=== PATIENT | female | born 1950 | race Caucasian/White ===

== ENCOUNTER → 2019-09-19 | Outpatient (CLI) | payer BC, MEDICARE ==
[2019-09-19 18:10] LABS: Percent Saturation 24.5 % (15.0-50.0)
== END | disposition home or self-care (01) ==
LOC: LAB 16:30 → LAB SHORT 16:30
PROVIDERS: Nurse Practitioner Family
DX: D64.9 Anemia, unspecified (principal)
CPT/HCPCS: 82728; 83540; 83550

== ENCOUNTER → 2020-06-10 | Outpatient (CLI) | payer OTHER ==
[2020-06-10 19:10] LABS: Very Low Density Lipoprot Chol 19 mg/dL (6-32)
[2020-06-10 19:19] LABS: Alanine Aminotransfer (ALT/SGP 27 U/L (12-78); Albumin, Blood 3.9 g/dL (3.4-5.0); Albumin/Globulin Ratio 1.1 (0.8-1.8); Alk Phos 90 U/L (50-136); Anion Gap 7 mmol/L (6-16); Aspartate Aminotrans (AST/SGOT 22 U/L (12-37); Bilirubin, Total 0.5 mg/dL (0.1-1.0); Blood Urea Nitrogen 10 mg/dL (8-24); Bun/Creatinine Ratio 13.8 (12.0-20.0); CHOL/HDL RATIO 2.4; CO2, Blood 27 mmol/L (21-32); Calcium, Blood 9.4 mg/dL (8.5-10.1); Chloride, Blood 102 mmol/L (98-108); Cholesterol 176 mg/dL (50-200); Creatinine, Blood 0.72 mg/dL (0.40-1.00); Globulin, Blood 3.6 g/dL (2.2-4.0); Glomerular Filtration Rate >60 (60-); Glucose, Blood 87 mg/dL (70-99); HDL Cholesterol 72 mg/dL (>39); LDL/HDL RATIO 1.2; Low Density Lipoprotein Chol 85 mg/dL (0-110); Sodium, Blood 136 mmol/L (136-145); Total Protein, Blood 7.5 g/dL (6.4-8.2); Triglycerides 96 mg/dL (30-160)
== END | disposition home or self-care (01) ==
LOC: LAB SHORT 16:55 → LAB 16:55
PROVIDERS: Nurse Practitioner Family
DX: Z11.59 Encounter for screening for other viral diseases (principal); E78.5 Hyperlipidemia, unspecified; I10 Essential (primary) hypertension
CPT/HCPCS: 80053; 80061; 86803

== ENCOUNTER → 2020-08-21 | Outpatient (CLI) | payer OTHER ==
[~2020-08-21] MED LIST: ATOR20 PO; BUDESONIDE EC3 M1 PO; Prinivil10 MG PO
[2020-08-21 17:46] LABS: BASOPHILS ABSOLUTE AUTO 0.09 K/mm3 (0.00-0.23); BASOPHILS PERCENT AUTO 1 % (0-2); EOSINOPHILS ABSOLUTE AUTO 0.34 K/mm3 (0.00-0.68); EOSINOPHILS PERCENT AUTO 3 % (0-6); Hematocrit 37.2 % (33.0-51.0); Hemoglobin 11.5 g/dL (11.5-16.0); IMMATURE GRAN ABSOLUTE AUTO 0.03 K/mm3 (0.00-0.10); IMMATURE GRAN PERCENT AUTO 0 % (0-1); LYMPHOCYTES PERCENT AUTO 22 % (21-46); MONOCYTES ABSOLUTE AUTO 0.85 K/mm3 (0.16-1.47); MONOCYTES PERCENT AUTO 8 % (4-13); Mean Corpuscular HGB Conc 30.9 g/dL (31.5-36.5); Mean Corpuscular Volume 91 fL (80-100); Mean Platelet Volume 9.9 fL (9.1-12.4); NEUTROPHILS ABSOLUTE AUTO 7.49 K/mm3 (1.96-9.15); NEUTROPHILS PERCENT AUTO 66 % (41-73); Platelet Count 443 K/mm3 (150-400); RDW Coefficient Variation 15.6 % (11.7-14.2); RDW Standard Deviation 51.4 fL (35.1-46.3)
== END | disposition home or self-care (01) ==
LOC: LAB 11:56
PROVIDERS: Nurse Practitioner Family
DX: I10 Essential (primary) hypertension (principal)
CPT/HCPCS: 85025

== ENCOUNTER 2020-10-01 08:31 | Day surgery (SDC) | payer OTHER ==
[~2020-10-01] VITALS: Ht 160 cm; Wt 47.4 kg
--- NOTE | 2020-10-01 09:36 | NUR ---
Ambulatory in Day Surgery History, Chart, Medications and Allergies reviewed before start of procedure. Lungs clear T/O to Auscultation. Patient confirms NPO status and agrees with scheduled surgery. Patient States Post-Procedure ride home has been arranged.
--- NOTE | 2020-10-01 09:55 | NUR ---
10/01/20 0955 Noa Foster History, Chart, Medications and Allergies reviewed before start of procedure.PATIENT DETERMINED TO BE ASA APPROPRIATE FOR PROPOFOL SEDATION PRIOR TO START OF PROCEDURE BY . Patient confirms NPO status and agrees with scheduled surgery. MONITOR INTACT WITH CONTINUOUS PULSE OXIMETRY AND INTERMITTENT BP. 3-LEAD EKG REVIEWED WITH PHYSICIAN PRIOR TO START OF PROCEDURE.
--- NOTE | 2020-10-01 11:01 | NUR ---
Patient up to Ambulate independently. Gait steady. Discharge instructions reviewed with patient. Patient verbalizes understanding. Copy given to patient to take home.Lungs clear T/O to Auscultation. Patient States Post-Procedure ride home has been arranged. Discharged via wheelchair to private car for ride home.
== END 2020-10-01 11:22 | disposition home or self-care (01) ==
LOC: ORSCMMR 08:31
PROVIDERS: Internal Medicine Gastroenterology
PROC: 0DBN8ZX Excision of Sigmoid Colon, Via Natural or Artificial Opening Endoscopic, Diagnostic (ICD-10-PCS; principal; 2020-10-01 09:30)
PROC: 0DBK8ZX Excision of Ascending Colon, Via Natural or Artificial Opening Endoscopic, Diagnostic (ICD-10-PCS; principal; 2020-10-01 09:30)
DX: Z12.11 Encounter for screening for malignant neoplasm of colon (principal); D12.2 Benign neoplasm of ascending colon; K64.8 Other hemorrhoids; Z86.010 Personal history of colon polyps; I10 Essential (primary) hypertension; E78.00 Pure hypercholesterolemia, unspecified; Z79.899 Other long term (current) drug therapy; F17.210 Nicotine dependence, cigarettes, uncomplicated
CPT/HCPCS: 88305; J2704; J7120

== ENCOUNTER → 2021-06-12 | Outpatient (CLI) | payer OTHER ==
[2021-06-12 17:45] LABS: BASOPHILS ABSOLUTE AUTO 0.09 K/mm3 (0.00-0.23); BASOPHILS PERCENT AUTO 1 % (0-2); EOSINOPHILS ABSOLUTE AUTO 0.35 K/mm3 (0.00-0.68); EOSINOPHILS PERCENT AUTO 5 % (0-6); Hematocrit 37.3 % (33.0-51.0); Hemoglobin 11.9 g/dL (11.5-16.0); IMMATURE GRAN ABSOLUTE AUTO 0.02 K/mm3 (0.00-0.10); IMMATURE GRAN PERCENT AUTO 0 % (0-1); LYMPHOCYTES ABSOLUTE AUTO 1.97 K/mm3 (0.84-5.20); LYMPHOCYTES PERCENT AUTO 26 % (21-46); MONOCYTES ABSOLUTE AUTO 0.53 K/mm3 (0.16-1.47); MONOCYTES PERCENT AUTO 7 % (4-13); Mean Corpuscular HGB 27.9 pg (26.0-34.0); Mean Corpuscular HGB Conc 31.9 g/dL (31.5-36.5); Mean Corpuscular Volume 87 fL (80-100); NEUTROPHILS ABSOLUTE AUTO 4.69 K/mm3 (1.96-9.15); NEUTROPHILS PERCENT AUTO 61 % (41-73); Platelet Count 426 K/mm3 (150-400); RDW Standard Deviation 50.7 fL (35.1-46.3); Red Blood Cell Count 4.27 M/mm3 (3.80-5.20); White Blood Cell Count 7.65 K/mm3 (4.00-11.30)
[2021-06-12 17:58] LABS: Alanine Aminotransfer (ALT/SGP 27 U/L (12-78); Albumin, Blood 3.8 g/dL (3.4-5.0); Alk Phos 97 U/L (50-136); Anion Gap 3 mmol/L (6-16); Aspartate Aminotrans (AST/SGOT 23 U/L (12-37); Bilirubin, Total 0.5 mg/dL (0.1-1.0); Blood Urea Nitrogen 8 mg/dL (8-24); CHOL/HDL RATIO 3.2; CO2, Blood 30 mmol/L (21-32); Chloride, Blood 103 mmol/L (98-108); Cholesterol 199 mg/dL (50-200); Globulin, Blood 3.8 g/dL (2.2-4.0); Glucose, Blood 85 mg/dL (70-99); HDL Cholesterol 63 mg/dL (>39); LDL/HDL RATIO 1.7; Low Density Lipoprotein Chol 107 mg/dL (0-110); Potassium, Blood 3.9 mmol/L (3.5-5.5); Sodium, Blood 136 mmol/L (136-145); Total Protein, Blood 7.6 g/dL (6.4-8.2); Triglycerides 145 mg/dL (30-160); Very Low Density Lipoprot Chol 29 mg/dL (6-32)
[2021-06-12 18:00] LABS: Bun/Creatinine Ratio 10.3 (12.0-20.0); Creatinine, Blood 0.78 mg/dL (0.40-1.00); Glomerular Filtration Rate >60 (60-)
== END | disposition home or self-care (01) ==
LOC: LAB SHORT 10:07
PROVIDERS: Nurse Practitioner Family
DX: I10 Essential (primary) hypertension (principal); E78.5 Hyperlipidemia, unspecified
CPT/HCPCS: 80053; 80061; 85025

== ENCOUNTER → 2022-01-15 | Outpatient (CLI) | payer OTHER | END | disposition home or self-care (01) | LOC: LAB SHORT 08:25 → PLD 08:25 | DX: S10.86XA Insect bite of other specified part of neck, initial encounter (principal) | CPT/HCPCS: 88305; 88312 ==

== ENCOUNTER → 2023-04-05 | Outpatient (CLI) | payer OTHER ==
[2023-04-05 21:02] LABS: Albumin, Blood 4.1 g/dL (3.4-5.0); Albumin/Globulin Ratio 1.1 (0.8-1.8); Bilirubin, Total 0.3 mg/dL (0.1-1.0); Bun/Creatinine Ratio 11.6 (12.0-20.0); Calcium, Blood 9.3 mg/dL (8.5-10.1); Creatinine, Blood 0.77 mg/dL (0.40-1.00); Globulin, Blood 3.7 g/dL (2.2-4.0); Total Protein, Blood 7.8 g/dL (6.4-8.2)
== END | disposition home or self-care (01) ==
LOC: LAB SHORT 18:11 → LAB 18:11
PROVIDERS: Nurse Practitioner Family
DX: I10 Essential (primary) hypertension (principal)
CPT/HCPCS: 80053

== ENCOUNTER 2023-10-28 08:58 | Day surgery (SDC) | payer OTHER ==
[~2023-10-28] VITALS: Ht 160 cm; Wt 51.2 kg
[~2023-10-28 08:58] MED LIST changes: +Calcium Carbon500 MG PO; +LOSA50 PO; +Lactated Ringer's 1,000 ML IV SCH; +MAGCHL64ER; +MULVITA PO
[2023-10-28 10:08] VITALS: BP 180/85
--- NOTE | 2023-10-28 10:12 | NUR ---
PATIENT LEFT HER PARTIAL DENTURES AT HOME. GLASSES PLACED ON BEDSIDE TABLE FOR SAFE KEEPING DURING PROCEDURE.
[2023-10-28] MEDS ORDERED: propofoL 60 ML IV ONE (11:02)
[2023-10-28] MEDS ORDERED: Benzocaine Oral Spray 0.5ML UD ONE (11:09)
[2023-10-28 12:25] VITALS: BP 154/90
--- NOTE | 2023-10-28 12:32 | NUR ---
10/28/23 1232 Iqra Foster PRIOR TO PROCEDURE HISTORY, CHART, MEDICATIONS AND ALLERGIES REVIEWED BEFORE START OF PROCEDURE. PATIENT CONFIRMS NPO STATUS AND AGREES WITH SCHEDULED PROCEDURE. 3-LEAD EKG REVIEWED WITH PHYSICIAN PRIOR TO START OF PROCEDURE. MONITOR INTACT WITH CONTINUOUS PULSE OXIMETRY,CAPNOGRAPHY, 3-LEAD EKG, INTERMITTENT BP. SUPPLEMENTAL O2 TO BE TITRATED THROUGHOUT PROCEDURE TO MAINTAIN O2 SATURATION ABOVE 90%. PATIENT DETERMINED TO BE ASA APPROPRIATE FOR PROPOFOL SEDATION PRIOR TO START OF PROCEDURE BY DR. ANTOINE
== END 2023-10-28 22:49 | disposition home or self-care (01) ==
LOC: ORSCMMR 08:58 → ORD 10:00 → ORSCMMR 10:00
PROVIDERS: Internal Medicine Gastroenterology
PROC: 0DBK8ZX Excision of Ascending Colon, Via Natural or Artificial Opening Endoscopic, Diagnostic (ICD-10-PCS; principal; 2023-10-28 10:00)
PROC: 0DB58ZX Excision of Esophagus, Via Natural or Artificial Opening Endoscopic, Diagnostic (ICD-10-PCS; principal; 2023-10-28 10:00)
PROC: 0DBL8ZX Excision of Transverse Colon, Via Natural or Artificial Opening Endoscopic, Diagnostic (ICD-10-PCS; principal; 2023-10-28 10:00)
PROC: 0D758ZZ Dilation of Esophagus, Via Natural or Artificial Opening Endoscopic (ICD-10-PCS; principal; 2023-10-28 10:00)
PROC: 0DBN8ZX Excision of Sigmoid Colon, Via Natural or Artificial Opening Endoscopic, Diagnostic (ICD-10-PCS; principal; 2023-10-28 10:00)
PROC: 0DB48ZX Excision of Esophagogastric Junction, Via Natural or Artificial Opening Endoscopic, Diagnostic (ICD-10-PCS; principal; 2023-10-28 10:00)
PROC: 0DBH8ZX Excision of Cecum, Via Natural or Artificial Opening Endoscopic, Diagnostic (ICD-10-PCS; principal; 2023-10-28 10:00)
PROC: 0DB98ZX Excision of Duodenum, Via Natural or Artificial Opening Endoscopic, Diagnostic (ICD-10-PCS; principal; 2023-10-28 10:00)
DX: R13.14 Dysphagia, pharyngoesophageal phase (principal); K21.9 Gastro-esophageal reflux disease without esophagitis; K52.832 Lymphocytic colitis; Z86.010 Personal history of colon polyps; D12.5 Benign neoplasm of sigmoid colon; D12.3 Benign neoplasm of transverse colon; D12.0 Benign neoplasm of cecum; D12.2 Benign neoplasm of ascending colon; K44.9 Diaphragmatic hernia without obstruction or gangrene; K29.80 Duodenitis without bleeding; I10 Essential (primary) hypertension; E78.00 Pure hypercholesterolemia, unspecified; Z79.899 Other long term (current) drug therapy; F17.210 Nicotine dependence, cigarettes, uncomplicated
CPT/HCPCS: 88305; A9270; C1726; J2704; J7120

== ENCOUNTER → 2024-06-22 | Outpatient (CLI) | payer OTHER ==
[~2024-06-22] MED LIST changes: -Lactated Ringer's 1,000 ML IV SCH
== END | disposition home or self-care (01) ==
LOC: LAB SHORT 07:48 → LAB 07:48
DX: B35.1 Tinea unguium (principal); L60.2 Onychogryphosis
CPT/HCPCS: 88305; 88312

== ENCOUNTER → 2024-06-26 | Outpatient (CLI) | payer OTHER ==
[2024-06-26 19:58] LABS: BASOPHILS ABSOLUTE AUTO 0.06 K/mm3 (0.00-0.23); BASOPHILS PERCENT AUTO 1 % (0-2); EOSINOPHILS PERCENT AUTO 5 % (0-6); Hematocrit 37.3 % (33.0-51.0); Hemoglobin 11.9 g/dL (11.5-16.0); IMMATURE GRAN ABSOLUTE AUTO 0.01 K/mm3 (0.00-0.10); IMMATURE GRAN PERCENT AUTO 0 % (0-1); LYMPHOCYTES ABSOLUTE AUTO 1.78 K/mm3 (0.84-5.20); LYMPHOCYTES PERCENT AUTO 28 % (21-46); MONOCYTES ABSOLUTE AUTO 0.46 K/mm3 (0.16-1.47); MONOCYTES PERCENT AUTO 7 % (4-13); Mean Corpuscular HGB 29.7 pg (26.0-34.0); Mean Corpuscular HGB Conc 31.9 g/dL (31.5-36.5); Mean Corpuscular Volume 93 fL (80-100); NEUTROPHILS ABSOLUTE AUTO 3.85 K/mm3 (1.96-9.15); NEUTROPHILS PERCENT AUTO 60 % (41-73); Platelet Count 407 K/mm3 (150-400); RDW Standard Deviation 54.4 fL (35.1-46.3); Red Blood Cell Count 4.01 M/mm3 (3.80-5.20); White Blood Cell Count 6.46 K/mm3 (4.00-11.30)
[2024-06-26 23:17] LABS: Alanine Aminotransfer (ALT/SGP 27 U/L (12-78); Albumin, Blood 3.8 g/dL (3.4-5.0); Alk Phos 93 U/L (50-136); Anion Gap 11 mmol/L (3-11); Aspartate Aminotrans (AST/SGOT 21 U/L (12-37); Bilirubin, Total 0.5 mg/dL (0.1-1.0); Blood Urea Nitrogen 11 mg/dL (8-24); Bun/Creatinine Ratio 12.9 (12.0-20.0); CHOL/HDL RATIO 2.9; CO2, Blood 27 mmol/L (21-32); Chloride, Blood 102 mmol/L (98-108); Cholesterol 206 mg/dL (50-200); Creatinine, Blood 0.85 mg/dL (0.40-1.00); Ferritin, Serum 29 ng/mL (8-252); Globulin, Blood 3.8 g/dL (2.2-4.0); Glomerular Filtration Rate 73 (60-); Glucose, Blood 84 mg/dL (70-99); HDL Cholesterol 71 mg/dL (>39); Iron Serum 77 ug/dL (50-170); LDL/HDL RATIO 1.5; Low Density Lipoprotein Chol 108 mg/dL (0-110); Percent Saturation 23.8 % (15.0-50.0); Potassium, Blood 3.6 mmol/L (3.5-5.5); Sodium, Blood 136 mmol/L (136-145); Total Iron Binding Capacity 324 ug/dL (250-450); Total Protein, Blood 7.6 g/dL (6.4-8.2); Triglycerides 136 mg/dL (30-160); Very Low Density Lipoprot Chol 27 mg/dL (6-32)
== END ==
LOC: LAB 17:25 → LAB SHORT 17:25
PROVIDERS: Nurse Practitioner Family
DX: I10 Essential (primary) hypertension (principal); E78.5 Hyperlipidemia, unspecified; D50.9 Iron deficiency anemia, unspecified; E55.9 Vitamin D deficiency, unspecified
CPT/HCPCS: 80053; 80061; 82306; 82728; 83540; 83550; 84443; 85025

== ENCOUNTER 2024-11-30 09:33 | Day surgery (SDC) | payer OTHER ==
[2024-11-30] VITALS (19 sets, daily range): BP systolic 123–194; BP diastolic 70–125
[~2024-11-30] VITALS: Ht 160 cm; Wt 52.0 kg
[~2024-11-30 09:33] MED LIST changes: +Lactated Ringer's 1,000 ML IV SCH
[2024-11-30] MEDS ORDERED: FAMO40 PO (10:51)
[2024-11-30] MEDS ORDERED: propofoL 40 ML IV ONE (11:49)
--- NOTE | 2024-11-30 11:56 | NUR ---
11/30/24 Bry6 Edita Luke CONFIRMED AND REVIEWED H&P, MEDCICATIONS, ALLERGIES, MEDICAL HISTORY, RESPIRATORY HISTORY, VITAL SIGNS, 3-LEAD EKG, CONSENTS, AND PHYSICIAN ORDERS. PATIENT CONFIRMS NPO STATUS AND AGREES WITH SCHEDULED PROCEDURE. MONITOR INTACT WITH CONTINUOUS PULSE OXIMETRY, CAPNOGRAPHY, 3-LEAD EKG, INTERMITTENT BP. SUPPLEMENTAL O2 TO BE TITRATED THROUGHOUT PROCEDURE TO MAINTAIN O2 SATURATION ABOVE 90%. PATIENT DETERMINED TO BE ASA APPROPRIATE FOR PROPOFOL SEDATION PRIOR TO START OF PROCEDURE BY . MALLAMPATI CLASS 2 AIRWAY: COMPLETE VISUALIZATION OF THE UVULA.
--- NOTE | 2024-11-30 13:07 | NUR ---
Patient up to Ambulate independently. Gait steady. Discharge instructions reviewed with patient. Patient verbalizes understanding. Copy given to patient to take home. Patient States Post-Procedure ride home has been arranged. Discharged via wheelchair to private car for ride home. PT TOLERATING PO. REPORTS READY TO GO HOME.
== END 2024-11-30 13:08 | disposition home or self-care (01) ==
LOC: ORSCMMR 09:33 → ORD 10:30 → ORSCMMR 13:08
PROVIDERS: Internal Medicine Gastroenterology
PROC: 0DBL8ZX Excision of Transverse Colon, Via Natural or Artificial Opening Endoscopic, Diagnostic (ICD-10-PCS; principal; 2024-11-30 10:30)
PROC: 0DBN8ZX Excision of Sigmoid Colon, Via Natural or Artificial Opening Endoscopic, Diagnostic (ICD-10-PCS; principal; 2024-11-30 10:30)
PROC: 0DBM8ZX Excision of Descending Colon, Via Natural or Artificial Opening Endoscopic, Diagnostic (ICD-10-PCS; principal; 2024-11-30 10:30)
PROC: 0DBH8ZX Excision of Cecum, Via Natural or Artificial Opening Endoscopic, Diagnostic (ICD-10-PCS; principal; 2024-11-30 10:30)
DX: Z86.0101 Personal history of adenomatous and serrated colon polyps (principal); D12.0 Benign neoplasm of cecum; D12.3 Benign neoplasm of transverse colon; D12.4 Benign neoplasm of descending colon; K63.5 Polyp of colon; I10 Essential (primary) hypertension; E78.00 Pure hypercholesterolemia, unspecified; J44.9 Chronic obstructive pulmonary disease, unspecified; K21.9 Gastro-esophageal reflux disease without esophagitis; Z79.899 Other long term (current) drug therapy; F17.210 Nicotine dependence, cigarettes, uncomplicated
CPT/HCPCS: 88305; J2704; J7120

== ENCOUNTER 2025-04-18 17:39 | Emergency (ER) | payer OTHER ==
[~2025-04-18] VITALS: Ht 160 cm; Wt 49.9 kg
[~2025-04-18 17:39] MED LIST changes: +FAMO40 PO; -Lactated Ringer's 1,000 ML IV SCH
[2025-04-18 18:16] VITALS: BP 171/98
[2025-04-18] MEDS ORDERED: Ondansetron 4 MG SoluTab MM ONE ×2 (20:00→21:20)
[2025-04-18] MEDS ORDERED: RX Prepack 2 Tabs Ondansetron ODT 4MG UD ONE (22:20)
[2025-04-18] MEDS ORDERED: MIRALAX17 GM PO (22:25)
[2025-04-18] MEDS ORDERED: ADULT GLYCERIN1 EACH PR (22:25)
[2025-04-18] MEDS ORDERED: MINERAL OIL133 M1 PR (22:25)
[2025-04-18] MEDS ORDERED: ONDA4ODT MM (22:25)
[2025-04-24] MEDS ORDERED: ADULT GLYCERIN1 EACH PR (11:20)
[2025-04-24] MEDS ORDERED: MIRALAX1714 PO (11:20)
[2025-04-24] MEDS ORDERED: ONDA4ODT MM (11:21)
[2025-04-24] MEDS ORDERED: Preservision S1 EACH PO (11:22)
== END 2025-04-18 22:28 | disposition home or self-care (01) ==
LOC: ER 17:39
DX: K59.00 Constipation, unspecified (principal); F17.200 Nicotine dependence, unspecified, uncomplicated
CPT/HCPCS: 74018; 99283-25; A9270

== ENCOUNTER 2025-05-14 12:41 | Emergency (ER) | payer OTHER ==
[~2025-05-14] VITALS: Ht 162.6 cm; Wt 45.4 kg
[~2025-05-14 12:41] MED LIST changes: +ADULT GLYCERIN1 EACH PR; +MINERAL OIL133 M1 PR; +MIRALAX17 GM PO; +MIRALAX1714 PO; +ONDA4ODT MM; +Preservision S1 EACH PO
[2025-05-14 13:04] LABS: BASOPHILS ABSOLUTE AUTO 0.05 K/mm3 (0.00-0.23); BASOPHILS PERCENT AUTO 0 % (0-2); EOSINOPHILS ABSOLUTE AUTO 0.14 K/mm3 (0.00-0.68); EOSINOPHILS PERCENT AUTO 1 % (0-6); IMMATURE GRAN ABSOLUTE AUTO 0.58 K/mm3 (0.00-0.10); IMMATURE GRAN PERCENT AUTO 3 % (0-1); LYMPHOCYTES ABSOLUTE AUTO 1.29 K/mm3 (0.84-5.20); LYMPHOCYTES PERCENT AUTO 7 % (21-46); MONOCYTES ABSOLUTE AUTO 0.51 K/mm3 (0.16-1.47); MONOCYTES PERCENT AUTO 3 % (4-13); Mean Corpuscular HGB Conc 32.0 g/dL (31.5-36.5); Mean Corpuscular Volume 96 fL (80-100); NEUTROPHILS ABSOLUTE AUTO 14.80 K/mm3 (1.96-9.15); NEUTROPHILS PERCENT AUTO 85 % (41-73); NRBC ABSOLUTE 0.00 K/mm3 (0.00-0.02); NRBC Auto 0.0 /100 WBC (0.0-0.2); Platelet Count 380 K/mm3 (150-400); RDW Coefficient Variation 15.6 % (11.7-14.2); RDW Standard Deviation 53.4 fL (35.1-46.3)
[2025-05-14 13:06] LABS: Hematocrit 12.8 % (33.0-51.0); Hemoglobin 4.1 g/dL (11.5-16.0)
[2025-05-14] MEDS ORDERED: NS 1,000 ML IV ONE ×2 (13:10→16:32)
[2025-05-14 13:19] LABS: Alanine Aminotransfer (ALT/SGP 49.0 U/L (12-78); Albumin, Blood 2.0 g/dL (3.4-5.0); Albumin/Globulin Ratio 0.6 (0.8-1.8); Anion Gap 16.0 mmol/L (3-11); Aspartate Aminotrans (AST/SGOT 21.0 U/L (12-37); Bilirubin, Total 0.2 mg/dL (0.1-1.0); Blood Urea Nitrogen 50.0 mg/dL (8-24); CO2, Blood 17.0 mmol/L (21-32); Calcium, Blood 7.7 mg/dL (8.5-10.1); Chloride, Blood 106.0 mmol/L (98-108); Creatinine, Blood 1.26 mg/dL (0.40-1.00); Globulin, Blood 3.1 g/dL (2.2-4.0); Glucose, Blood 225.0 mg/dL (70-99); Potassium, Blood 4.0 mmol/L (3.5-5.5); Sodium, Blood 135.0 mmol/L (136-145); Total Protein, Blood 5.1 g/dL (6.4-8.2)
[2025-05-14 13:24] LABS: Prothrombin Time Results 12.0 Sec (9.7-11.5)
[2025-05-14] MEDS ORDERED: Pantoprazole Sodium 40 MG Injection IV ONE (13:40)
[2025-05-14 14:07] LABS: Source, Urine Foley catheter
[2025-05-14 14:13] LABS: Color, Urine Yellow (P-Yellow); Glucose Qualitative, Urine Neg (Neg); Ketones, Urine Neg (Neg); Leukocyte Esterase, Urine Neg (Neg); Protein, Urine 2+ (Neg); Specific Gravity, Urine 1.020 (1.003-1.022); Urobilinogen, Urine NORM (Normal)
[2025-05-14 14:45] LABS: Bilirubin, Urine 1+ (Neg)
[2025-05-14 14:48] LABS: Red Blood Cells, Urine 0-2 /hpf (0-2)
[2025-05-14 16:58] VITALS: BP 127/60
== END 2025-05-14 17:17 | disposition home or self-care (01) ==
LOC: ER 12:41
PROVIDERS: Emergency Medicine
DX: K92.2 Gastrointestinal hemorrhage, unspecified (principal); K31.89 Other diseases of stomach and duodenum; K76.9 Liver disease, unspecified; R79.89 Other specified abnormal findings of blood chemistry; F17.200 Nicotine dependence, unspecified, uncomplicated; Z91.018 Allergy to other foods; Z88.0 Allergy status to penicillin; Z88.8 Allergy status to other drugs, medicaments and biological substances
CPT/HCPCS: 51702; 70450; 71045; 71260; 72125; 74177; 80053; 81001; 83605; 84484; 85018; 85025; 85610; J2470; J7030; J7050; P9016; Q9967

== ENCOUNTER → 2025-05-24 | Outpatient (CLI) | payer OTHER ==
[2025-05-24 18:18] LABS: BASOPHILS ABSOLUTE AUTO 0.04 K/mm3 (0.00-0.23); BASOPHILS PERCENT AUTO 1 % (0-2); EOSINOPHILS ABSOLUTE AUTO 0.62 K/mm3 (0.00-0.68); EOSINOPHILS PERCENT AUTO 9 % (0-6); Hematocrit 25.8 % (33.0-51.0); Hemoglobin 8.2 g/dL (11.5-16.0); IMMATURE GRAN ABSOLUTE AUTO 0.02 K/mm3 (0.00-0.10); IMMATURE GRAN PERCENT AUTO 0 % (0-1); LYMPHOCYTES ABSOLUTE AUTO 1.70 K/mm3 (0.84-5.20); LYMPHOCYTES PERCENT AUTO 25 % (21-46); MONOCYTES ABSOLUTE AUTO 0.57 K/mm3 (0.16-1.47); MONOCYTES PERCENT AUTO 8 % (4-13); Mean Corpuscular HGB Conc 31.8 g/dL (31.5-36.5); Mean Corpuscular Volume 94 fL (80-100); NEUTROPHILS ABSOLUTE AUTO 3.85 K/mm3 (1.96-9.15); NEUTROPHILS PERCENT AUTO 57 % (41-73); NRBC ABSOLUTE 0.00 K/mm3 (0.00-0.02); NRBC Auto 0.0 /100 WBC (0.0-0.2); Platelet Count 563 K/mm3 (150-400); RDW Coefficient Variation 15.1 % (11.7-14.2); RDW Standard Deviation 51.0 fL (35.1-46.3)
[2025-05-24 19:44] LABS: Alanine Aminotransfer (ALT/SGP 27.0 U/L (12-78); Albumin, Blood 2.3 g/dL (3.4-5.0); Albumin/Globulin Ratio 0.7 (0.8-1.8); Anion Gap 9.0 mmol/L (3-11); Aspartate Aminotrans (AST/SGOT 18.0 U/L (12-37); Bilirubin, Total 0.2 mg/dL (0.1-1.0); Blood Urea Nitrogen 9.0 mg/dL (8-24); CO2, Blood 25.0 mmol/L (21-32); Calcium, Blood 7.9 mg/dL (8.5-10.1); Chloride, Blood 106.0 mmol/L (98-108); Creatinine, Blood 0.84 mg/dL (0.40-1.00); Globulin, Blood 3.4 g/dL (2.2-4.0); Glucose, Blood 105.0 mg/dL (70-99); Potassium, Blood 3.2 mmol/L (3.5-5.5); Sodium, Blood 137.0 mmol/L (136-145); Total Iron Binding Capacity 191.0 ug/dL (250-450); Total Protein, Blood 5.7 g/dL (6.4-8.2)
== END ==
LOC: LAB SHORT 17:34 → LAB 17:34
PROVIDERS: Internal Medicine Hematology & Oncology
DX: C17.0 Malignant neoplasm of duodenum (principal)
CPT/HCPCS: 80053; 82378; 83540; 83550; 85025

== ENCOUNTER 2025-06-05 02:12 | Day surgery (SDC) | payer OTHER ==
[~2025-06-05 02:12] MED LIST changes: +LOSA25 PO; -LOSA50 PO
[2025-06-05] MEDS ORDERED: NS 250 ML IV SCH (07:00)
[2025-06-05 07:48] VITALS: BP 114/57
[2025-06-05 08:04] VITALS: BP 100/49
[2025-06-05 09:08] VITALS: BP 115/59
[2025-06-05 09:47] VITALS: BP 147/64
[2025-06-05 10:06] VITALS: BP 144/72
[2025-06-05 11:34] VITALS: BP 170/75
[2025-06-07] MEDS ORDERED: PANT20 PO (08:35)
[2025-06-07] MEDS ORDERED: ERGO400 (08:38)
== END 2025-06-05 11:42 | disposition home or self-care (01) ==
LOC: ATC 02:12 → EDSTATUS 07:30 → ATC 07:30
DX: C17.0 Malignant neoplasm of duodenum (principal); C78.7 Secondary malignant neoplasm of liver and intrahepatic bile duct; I10 Essential (primary) hypertension; Z87.891 Personal history of nicotine dependence; Z79.899 Other long term (current) drug therapy; Z91.030 Bee allergy status
CPT/HCPCS: 36430; 86850; 86900; 86901; 86923; J7050; P9016

== ENCOUNTER 2025-06-12 06:14 | Day surgery (SDC) | payer OTHER ==
[~2025-06-12] VITALS: Ht 157.5 cm; Wt 42.1 kg
[2025-06-12] VITALS (8 sets, daily range): BP systolic 114–137; BP diastolic 66–81
[~2025-06-12 06:14] MED LIST changes: +ERGO400; +PANT20 PO
[2025-06-12] MEDS ORDERED: CeFAZolin Sodium 2,000 MG in NS 100 ML IV SCH (06:20)
[2025-06-12] MEDS ORDERED: CALCITRATE PO (06:37)
--- NOTE | 2025-06-12 07:02 | NUR ---
Ambulatory in Day Surgery. History, Chart, Medications and Allergies reviewed before start of procedure. Pre-Op teaching done. Pt verbalizes understanding. Patient confirms NPO status and agrees with scheduled surgery. Patient States Post-Procedure ride home has been arranged. GLASSES PLACED IN BAGGIE WITH NAME ON IT AND PLACED IN PATIENTS BELONGINS BAG.
[2025-06-12] MEDS ORDERED: FentaNYL Citrate 50 MCG/ML 2 ML Injection ONE (07:04)
[2025-06-12] MEDS ORDERED: Ondansetron HCl 2 MG / ML 2ML Vial ONE (07:05)
[2025-06-12] MEDS ORDERED: Dexamethasone Sod Phos 10 MG/ML 1ML VIAL ONE (07:05)
[2025-06-12] MEDS ORDERED: HYDROmorphone HCl/Pf 1MG SYR IV PRN (07:15)
[2025-06-12] MEDS ORDERED: FentaNYL Citrate 50 MCG/ML 2 ML Injection IV PRN ×3 (07:15→07:25)
[2025-06-12] MEDS ORDERED: Midazolam HCl 1MG / ML 2ML Vial IV PRN (07:20)
[2025-06-12] MEDS ORDERED: Metoclopramide HCl 5MG / ML 2ML Vial IV PRN (07:20)
[2025-06-12] MEDS ORDERED: Ondansetron HCl 2 MG / ML 2ML Vial IV PRN (07:20)
[2025-06-12] MEDS ORDERED: HYDROcodone 5-APAP 325 TAB PO PRN (08:15)
--- NOTE | 2025-06-12 09:10 | NUR ---
Discharge instructions reviewed with patient. Patient verbalizes understanding. Copy given to patient to take home. Dressing c/d/i. Patient States Post-Procedure ride home has been arranged.
== END 2025-06-12 09:11 | disposition home or self-care (01) ==
LOC: ORSCMMR 06:14 → ORD 07:30 → ORSCMMR 09:11
PROVIDERS: Surgery
PROC: 0JH63WZ Insertion of Totally Implantable Vascular Access Device into Chest Subcutaneous Tissue and Fascia, Percutaneous Approach (ICD-10-PCS; principal; 2025-06-12 07:30)
DX: C17.0 Malignant neoplasm of duodenum (principal); C78.7 Secondary malignant neoplasm of liver and intrahepatic bile duct; I12.9 Hypertensive chronic kidney disease with stage 1 through stage 4 chronic kidney disease, or unspecified chronic kidney disease; N18.9 Chronic kidney disease, unspecified; K21.9 Gastro-esophageal reflux disease without esophagitis; I10 Essential (primary) hypertension; Z79.899 Other long term (current) drug therapy; Z87.891 Personal history of nicotine dependence
CPT/HCPCS: 77001; C1788; J0690; J1100; J1642; J2405; J2704; J3010; J7120

== ENCOUNTER 2025-06-25 18:55 | Inpatient (IN) | payer OTHER ==
[~2025-06-25] VITALS: Ht 157.5 cm; Wt 39.0 kg
[~2025-06-25 18:55] MED LIST changes: -ATOR20 PO; +ATOR40TA PO; +CALCITRATE PO; -PANT20 PO; +PANT40 PO
[2025-06-25 20:11] LABS: BASOPHILS ABSOLUTE AUTO 0.03 K/mm3 (0.00-0.23); BASOPHILS PERCENT AUTO 2 % (0-2); EOSINOPHILS ABSOLUTE AUTO 0.02 K/mm3 (0.00-0.68); EOSINOPHILS PERCENT AUTO 1 % (0-6); Hematocrit 34.5 % (33.0-51.0); Hemoglobin 11.3 g/dL (11.5-16.0); Mean Corpuscular HGB Conc 32.8 g/dL (31.5-36.5); Mean Corpuscular Volume 85 fL (80-100); NRBC ABSOLUTE 0.00 K/mm3 (0.00-0.02); NRBC Auto 0.0 /100 WBC (0.0-0.2); Platelet Count 303 K/mm3 (150-400); RDW Coefficient Variation 15.3 % (11.7-14.2); RDW Standard Deviation 46.0 fL (35.1-46.3)
[2025-06-25 20:16] LABS: IMMATURE GRAN ABSOLUTE AUTO 0.01 K/mm3 (0.00-0.10); IMMATURE GRAN PERCENT AUTO 1 % (0-1); LYMPHOCYTES ABSOLUTE AUTO 1.14 K/mm3 (0.84-5.20); LYMPHOCYTES PERCENT AUTO 66 % (21-46); MONOCYTES ABSOLUTE AUTO 0.40 K/mm3 (0.16-1.47); MONOCYTES PERCENT AUTO 23 % (4-13); NEUTROPHILS ABSOLUTE AUTO 0.14 K/mm3 (1.96-9.15); NEUTROPHILS PERCENT AUTO 8 % (41-73)
[2025-06-25] MEDS ORDERED: NS 1,000 ML IV SCH (20:25)
[2025-06-25 20:32] LABS: Alanine Aminotransfer (ALT/SGP 20.0 U/L (12-78); Albumin, Blood 3.0 g/dL (3.4-5.0); Albumin/Globulin Ratio 0.7 (0.8-1.8); Anion Gap 13.0 mmol/L (3-11); Aspartate Aminotrans (AST/SGOT 15.0 U/L (12-37); Bilirubin, Total 0.4 mg/dL (0.1-1.0); Blood Urea Nitrogen 48.0 mg/dL (8-24); CO2, Blood 24.0 mmol/L (21-32); Calcium, Blood 9.2 mg/dL (8.5-10.1); Chloride, Blood 97.0 mmol/L (98-108); Creatinine, Blood 1.7 mg/dL (0.40-1.00); Globulin, Blood 4.5 g/dL (2.2-4.0); Glucose, Blood 115.0 mg/dL (70-99); Potassium, Blood 3.7 mmol/L (3.5-5.5); Sodium, Blood 130.0 mmol/L (136-145); Total Protein, Blood 7.5 g/dL (6.4-8.2)
[2025-06-25] MEDS ORDERED: Ondansetron HCl 2 MG / ML 2ML Vial IV ONE (20:35)
[2025-06-26] MEDS ORDERED: Midazolam HCl 1MG / ML 2ML Vial IV PRN (00:20)
[2025-06-26] MEDS ORDERED: FLU VACC TS2025(65UP)/MF59C/PF 45 MCG/0.5 ML SYRINGE IM SCH (00:35)
[2025-06-26] MEDS ORDERED: FentaNYL Citrate 50 MCG/ML 2 ML Injection IV PRN (00:35)
[2025-06-26] MEDS ORDERED: NS 1,000 ML IV ONE (00:35)
[2025-06-26] MEDS ORDERED: Ondansetron HCl 2 MG / ML 2ML Vial IV PRN (00:40)
[2025-06-26 00:56] LABS: Magnesium, Blood 1.5 mg/dL (1.6-2.4); Phosphorus, Blood 4.8 mg/dL (2.5-4.9)
[2025-06-26] MEDS ORDERED: Mag Sulfate 1 GM/D5% 100ML 100 ML IV STA (03:07)
[2025-06-26 03:09] VITALS: BP 116/70
[2025-06-26] MEDS ORDERED: ZYRTEC10 M2 PO (04:06)
[2025-06-26] MEDS ORDERED: ONDA4ODT SL (04:08)
[2025-06-26 04:46] LABS: Source, Urine Clean Catch
[2025-06-26 05:16] LABS: Bilirubin, Urine Neg (Neg); Glucose Qualitative, Urine Neg (Neg); Ketones, Urine 1+ (Neg); Leukocyte Esterase, Urine Neg (Neg); Protein, Urine 2+ (Neg); Specific Gravity, Urine 1.010 (1.003-1.022); Urobilinogen, Urine NORM (Normal)
[2025-06-26 05:20] LABS: Color, Urine Yellow (P-Yellow)
[2025-06-26 05:22] LABS: Red Blood Cells, Urine Not Seen /hpf (0-2); White Blood Cells, Urine Not Seen /hpf (0-5)
--- NOTE | 2025-06-26 05:35 | NUR ---
Shift Summary Received a quick and short report from WAQAS Snyder RN. Patient arrived around 0300 via gurney. AOx4, flat affect, wearing personal clothing with hospital gown over. Patient lives alone and verbalizes she does not feel safe at the moment living by herself as she has been progressively weak from chemotherapy. Plan to transfer to [facility] when bed is available. Denies pain, nausea. Patient has had vomiting without being nauseous d/t clogged abdominal stent. UA obtained and sent to lab. Tele: Sr [id number]. NPO for now. Call light in reach.
[2025-06-26] MEDS ORDERED: NS 250 ML IV PRN (06:10)
[2025-06-26 07:48] VITALS: BP 93/63
[2025-06-26 09:52] LABS: BASOPHILS ABSOLUTE AUTO 0.02 K/mm3 (0.00-0.23); BASOPHILS PERCENT AUTO 1 % (0-2); EOSINOPHILS ABSOLUTE AUTO 0.01 K/mm3 (0.00-0.68); EOSINOPHILS PERCENT AUTO 1 % (0-6); Hematocrit 25.6 % (33.0-51.0); Hemoglobin 8.4 g/dL (11.5-16.0); IMMATURE GRAN ABSOLUTE AUTO 0.04 K/mm3 (0.00-0.10); IMMATURE GRAN PERCENT AUTO 2 % (0-1); LYMPHOCYTES ABSOLUTE AUTO 1.10 K/mm3 (0.84-5.20); LYMPHOCYTES PERCENT AUTO 64 % (21-46); MONOCYTES ABSOLUTE AUTO 0.46 K/mm3 (0.16-1.47); MONOCYTES PERCENT AUTO 27 % (4-13); Mean Corpuscular HGB Conc 32.8 g/dL (31.5-36.5); Mean Corpuscular Volume 86 fL (80-100); NEUTROPHILS ABSOLUTE AUTO 0.10 K/mm3 (1.96-9.15); NEUTROPHILS PERCENT AUTO 6 % (41-73); NRBC ABSOLUTE 0.00 K/mm3 (0.00-0.02); NRBC Auto 0.0 /100 WBC (0.0-0.2); Platelet Count 269 K/mm3 (150-400); RDW Coefficient Variation 15.3 % (11.7-14.2); RDW Standard Deviation 47.3 fL (35.1-46.3)
[2025-06-26 10:19] LABS: Alanine Aminotransfer (ALT/SGP 14.0 U/L (12-78); Albumin, Blood 2.2 g/dL (3.4-5.0); Albumin/Globulin Ratio 0.6 (0.8-1.8); Anion Gap 9.0 mmol/L (3-11); Aspartate Aminotrans (AST/SGOT 12.0 U/L (12-37); Bilirubin, Total 0.5 mg/dL (0.1-1.0); Blood Urea Nitrogen 41.0 mg/dL (8-24); CO2, Blood 23.0 mmol/L (21-32); Calcium, Blood 7.9 mg/dL (8.5-10.1); Chloride, Blood 104.0 mmol/L (98-108); Creatinine, Blood 1.06 mg/dL (0.40-1.00); Globulin, Blood 3.4 g/dL (2.2-4.0); Glucose, Blood 98.0 mg/dL (70-99); Potassium, Blood 3.9 mmol/L (3.5-5.5); Sodium, Blood 132.0 mmol/L (136-145); Total Protein, Blood 5.6 g/dL (6.4-8.2)
[2025-06-26 11:28] VITALS: BP 98/56
[2025-06-26] MEDS ORDERED: PROM25 PO (12:45)
[2025-06-26] MEDS ORDERED: POTA10T PO (12:45)
[2025-06-26] MEDS ORDERED: VITAMIN D325 MC3 PO (12:46)
[2025-06-26 16:03] VITALS: BP 110/53
--- NOTE | 2025-06-26 17:21 | NUR ---
SHIFT SUMMARY PATIENT ALERT AND ORIENTED X 4, MAKE NEEDS KNOWN. MEDICATION ADMINISTERED PER EMAR. PATIENT PLEASANT AND RECEPTIVE DURING CARE. NO ACUTE CHANGE DURING THIS SHIFT. PATIENT NPO. PATIENT ON NEUTROPENIC PRECAUTION. SELF REPOSITIONED THROUGHOUT SHIFT. BED LOCKED AND IN LOWEST POSITION. CALL LIGHT WITHIN REACH.
[2025-06-26 19:08] VITALS: BP 106/66
[2025-06-26 23:39] VITALS: BP 113/67
--- NOTE | 2025-06-27 01:58 | NUR ---
MARGARITA BACH FROM [facility] CALLED FOR AN UPDATE ON PT. HE REPORTS THAT A BED WILL BE AVAILABLE DURING "DAY SHIFT" TODAY. HE REPORTS [facility] WILL CALL AGAIN WITH FURTHER DETAILS.
[2025-06-27 04:01] VITALS: BP 109/63
[2025-06-27 05:27] LABS: Hematocrit 24.9 % (33.0-51.0); Hemoglobin 8.0 g/dL (11.5-16.0); Mean Corpuscular HGB Conc 32.1 g/dL (31.5-36.5); Mean Corpuscular Volume 88 fL (80-100); NRBC ABSOLUTE 0.00 K/mm3 (0.00-0.02); NRBC Auto 0.0 /100 WBC (0.0-0.2); Platelet Count 278 K/mm3 (150-400); RDW Coefficient Variation 15.3 % (11.7-14.2); RDW Standard Deviation 48.9 fL (35.1-46.3)
[2025-06-27 05:48] LABS: Anion Gap 8.0 mmol/L (3-11); Blood Urea Nitrogen 26.0 mg/dL (8-24); CO2, Blood 23.0 mmol/L (21-32); Calcium, Blood 7.9 mg/dL (8.5-10.1); Chloride, Blood 109.0 mmol/L (98-108); Creatinine, Blood 0.73 mg/dL (0.40-1.00); Glucose, Blood 90.0 mg/dL (70-99); Potassium, Blood 3.7 mmol/L (3.5-5.5); Sodium, Blood 136.0 mmol/L (136-145)
--- NOTE | 2025-06-27 06:34 | NUR ---
SHIFT SUMMARY A/Ox4, PLEASANT. VSS ON RA. NPO DIET. TELE MONITOR; NSR, HR 80s. PT DENIES PAIN, SOB, NAUSEA. NO EMESIS NOTED. UP TO RESTROOM WITH SBA; VOIDING THUY URINE. MARGARITA BACH FROM [facility], CALLED FOR UPDATE; STATES TRANSFER IS EXPECTED FOR TODAY. PT WOULD APPRECIATE UPDATES ON TIMING SHE HAS "MANY PEOPLE TO NOTIFY".
[2025-06-27] MEDS ORDERED: NS 1,000 ML IV SCH (08:00)
[2025-06-27 08:17] VITALS: BP 126/72
[2025-06-27 12:45] VITALS: BP 129/70
[2025-06-27] MEDS ORDERED: DEXTROSE IV SCH (16:05)
[2025-06-27] MEDS ORDERED: CALCIUM IV SCH (16:05)
[2025-06-27] MEDS ORDERED: ELECTROLYTES IV SCH (16:05)
[2025-06-27] MEDS ORDERED: TPN Consult Notification XX ONE (16:05)
[2025-06-27] MEDS ORDERED: THIAMINE IV SCH (16:05)
[2025-06-27] MEDS ORDERED: AMINO ACIDS IV SCH (16:05)
[2025-06-27] MEDS ORDERED: [UNRECOGNIZED DRUG - OTHER] IV SCH (16:05)
[2025-06-27 16:34] VITALS: BP 126/73
--- NOTE | 2025-06-27 16:55 | NUR ---
SHIFT SUMMARY PATIENT ALERT AND ORIENTED X 4, MAKE NEEDS KNOWN. MEDICATION ADMINISTERED PER EMAR. PATIENT PLEASANT AND COOPERATIVE DURING CARE. NO ACUTE CHANGE DURING THIS SHIFT. PATIENT INDEPENDENTLY SHOWERED TODAY. G BATH AND DRESSING CHANGE COMPLETED. SELF REPOSITIONED THROUGHOUT SHIFT. BED LOCKED AND IN LOWEST POSITION. CALL LIGHT WITHIN REACH.
[2025-06-27 17:36] LABS: Magnesium, Blood 2.0 mg/dL (1.6-2.4); Phosphorus, Blood 2.7 mg/dL (2.5-4.9)
[2025-06-27 19:13] VITALS: BP 116/79
[2025-06-28 03:14] VITALS: BP 120/67
[2025-06-28 06:02] LABS: Anion Gap 7.0 mmol/L (3-11); Blood Urea Nitrogen 19.0 mg/dL (8-24); CO2, Blood 24.0 mmol/L (21-32); Calcium, Blood 7.9 mg/dL (8.5-10.1); Chloride, Blood 111.0 mmol/L (98-108); Creatinine, Blood 0.6 mg/dL (0.40-1.00); Glucose, Blood 112.0 mg/dL (70-99); Magnesium, Blood 1.8 mg/dL (1.6-2.4); Phosphorus, Blood 2.1 mg/dL (2.5-4.9); Potassium, Blood 3.7 mmol/L (3.5-5.5); Sodium, Blood 138.0 mmol/L (136-145)
--- NOTE | 2025-06-28 06:45 | NUR ---
SHIFT SUMMARY A/Ox4, VSS ON RA. NO ACUTE CHANGES OVERNIGHT. PT TOLERATING CLINIMIX AT 60 ML/HR WELL. NS RUNNING 75 ML/HR. UP TO RESTROOM WITH SBA. PT DENIES PAIN, SOB, NAUSEA, OTHER COMPLAINTS. MARGARITA BACH FROM [facility] CALLED FOR UPDATE; HE DID NOT KNOW ABOUT BED AVAILABILITY AT THIS TIME.
[2025-06-28 07:25] VITALS: BP 124/74
[2025-06-28 11:04] VITALS: BP 140/74
--- NOTE | 2025-06-28 13:29 | NUR ---
PATIENT SPOKE WIT PALLIATIVE CARE RN, CODE STATUS CHANGED TO DNR, WIATING TO HERE FROM [facility], CALL LIGHT WITH IN REACH, PLEASANT TO CARE
[2025-06-28] MEDS ORDERED: TPN Consult Notification XX ONE (14:05)
[2025-06-28 15:58] VITALS: BP 141/96
--- NOTE | 2025-06-28 17:28 | NUR ---
NO ACUTE CHANGES, NPO, PLEASANT TO CARE, ONE PERSON STAND BY TO RESTROOM, WAITING FOR BED AVAILABLIITY TO [facility], DENIED PAIN OR CP, WILL RLEAY TO PM RN
--- NOTE | 2025-06-28 18:27 | NUR ---
PALLIATIVE CARE VISIT: CONSULT RECEIVED FOR ADVANCE CARE PLANNING AND SYMPTOM MANAGEMENT. REVIEWED MEDICAL RECORD PRIOR TO VISIT. PT HAS NO POLST OR ADVANCE DIRECTIVE ON FILE. 1045 MET WITH PT IN HER ROOM. PT IS NPO. DENTAL HYGEINIST ALSO IN WITH PT AT TIME OF VISIT. PT IS AGREEABLE TO VISIT AND TO DISCUSS GOC. PT WISHES TO CONTINUE HER CANCER TREATMENT. SHE STATES "I KNOW I AM DYING, BUT I AM NOT READY TO GO [facility] YET." PT IS AWAITING BED AT [facility] FOR FURTHER TREATMENT. SHE IS AGREEABLE TO COMPLETING A POLST. PT WANTS TO BE A DNR. SHE STATES SHE ALREADY COMPLETED A POLST AT [facility] BUT SHE DID NOT GET A COPY. NO COPY FOUND ON POLST REGISTRY. SHE CHOSE DNR SELECTIVE TREATMENT. SYMPTOMS: PT STATES SHE HAS NO PAIN, NAUSEA OR SOB. SHE STATES SHE IS HUNGRY AND TIRED. PT IS CURRENTLY NPO DUE TO ESOPHAGEAL MASS. SHE STATES SHE IS SLEEPING THROUGH HER HUNGER AND DOESN'T NEED ANYTHING. SHE IS UTILIZING TOOTHETTES TO KEEP HER MOUTH MOIST. SHE DENIES ANY NEEDS FOR SYMPTOM MANAGEMENT AT THIS TIME. POLST SIGNED BY . SENT TO MEDICAL RECORDS, POLST REGISTRY. ORIGINAL PLACED IN CHART.
[2025-06-28 19:26] VITALS: BP 146/69
[2025-06-29] VITALS (15 sets, daily range): BP systolic 83–159; BP diastolic 55–104
[2025-06-29] MEDS ORDERED: Prochlorperazine Edisylate 10 mg Vial IV ONE (02:00)
[2025-06-29] MEDS ORDERED: Prochlorperazine Edisylate 10 mg Vial IV PRN (02:00)
[2025-06-29 06:14] LABS: Anion Gap 6 mmol/L (3-11); Blood Urea Nitrogen 22 mg/dL (8-24); CO2, Blood 33 mmol/L (21-32); Calcium, Blood 7.7 mg/dL (8.5-10.1); Chloride, Blood 102 mmol/L (98-108); Creatinine, Blood 0.63 mg/dL (0.40-1.00); Glucose, Blood 123 mg/dL (70-99); Magnesium, Blood 1.7 mg/dL (1.6-2.4); Phosphorus, Blood 3.4 mg/dL (2.5-4.9); Potassium, Blood 2.9 mmol/L (3.5-5.5); Sodium, Blood 138 mmol/L (136-145); Triglycerides 201 mg/dL (30-160)
--- NOTE | 2025-06-29 06:23 | NUR ---
SHIFT SUMMARY A/Ox4, BP DECLINED THIS SHIFT, OTHER VSS ON RA. PT WITH 1250 ML EMESIS, ANTI-EMETICS ONLY MILDLY EFFECTIVE; MD CONTACTED. NG TUBE PLACED, PT TOLERATED WELL. LOW, INTERMITTENT SUCTION. X-RAY RESULTS PENDING. 1400 ML NG OUTPUT AT THIS TIME; BLACK WITH SEDIMENT. NPO DIET CONTINUES. NS AND CLINIMIX RUNNING CONTINUOUSLY. [facility] COORDINATOR DID NOT GET IN TOUCH THIS SHIFT.
[2025-06-29] MEDS ORDERED: NS KCL 40 mEq 1,000 ML IV SCH (07:00)
[2025-06-29 12:12] LABS: Hematocrit 22.3 % (33.0-51.0); Hemoglobin 7.1 g/dL (11.5-16.0); Mean Corpuscular HGB Conc 31.8 g/dL (31.5-36.5); Mean Corpuscular Volume 89 fL (80-100); NRBC ABSOLUTE 0.03 K/mm3 (0.00-0.02); NRBC Auto 0.7 /100 WBC (0.0-0.2); Platelet Count 330 K/mm3 (150-400); RDW Coefficient Variation 15.4 % (11.7-14.2); RDW Standard Deviation 48.8 fL (35.1-46.3)
[2025-06-29 12:35] LABS: BAND PERCENT MAN 9 % (0-8); BASOPHILS ABSOLUTE MAN 0.00 K/mm3 (0.00-0.23); BASOPHILS PERCENT MAN 0 % (0-2); EOSINOPHILS ABSOLUTE MAN 0.00 K/mm3 (0.00-0.68); EOSINOPHILS PERCENT MAN 0 % (0-6); LYMPHOCYTES ABSOLUTE MAN 0.77 K/mm3 (0.84-5.20); LYMPHOCYTES PERCENT MAN 18 % (21-46); METAMYELOCYTE ABSOLUTE MAN 0.38 K/mm3 (0.00-0.00); METAMYELOCYTE PERCENT MAN 9 % (0-0); MONOCYTES ABSOLUTE MAN 0.42 K/mm3 (0.16-1.47); MONOCYTES PERCENT MAN 10 % (4-13); MYELOCYTE ABSOLUTE MAN 0.17 K/mm3 (0.00-0.00); MYELOCYTE PERCENT MAN 4 % (0-0); NEUTROPHILS ABSOLUTE MAN 2.44 K/mm3 (1.96-9.15); PROMYELOCYTE ABSOLUTE MAN 0.08 K/mm3 (0.00-0.00); PROMYELOCYTE PERCENT MAN 2 % (0-0); SEG NEUTROPHILS PERCENT MAN 48 % (41-73)
[2025-06-29] MEDS ORDERED: Pantoprazole Sodium 40 MG Injection IV SCH (13:00)
[2025-06-29 15:33] LABS: Hematocrit 19.3 % (33.0-51.0); Hemoglobin 6.2 g/dL (11.5-16.0)
[2025-06-29] MEDS ORDERED: [UNRECOGNIZED DRUG - OTHER] IV SCH (17:00)
[2025-06-29] MEDS ORDERED: NS 500 ML IV SCH (17:40)
--- NOTE | 2025-06-29 18:22 | NUR ---
SHIFT SUMMARY PT HERE FOR NAUSEA AND VOMITING NOT RESPONDING TO ANTIEMETICS. LAST NIGHT NG TUBE PLACED, BROWN EMESIS WITH COFFEE GROUND SEDIMENT TO SUCTION. CBC ORDERED AND HGB 7.1, REDRAW HGB WAS 6.2, MD AWARE, 2 UNITS PRBC ORDERED. FIRST UNIT BEGAN INFUSING AT 1820, SO FAR PT TOLERATING WELL. CPN ORDERED BUT NOT ADMINISTERED D/T BLOOD TRANSFUSING AT THIS TIME, WILL PASS ON TO NOC NURSE. K+ REPLACED THIS MORNING. PT DENIES N/V THIS SHIFT. PLEASANT AND COOPERATIVE WITH CARE. CALL LIGHT IN REACH.
--- NOTE | 2025-06-29 20:58 | NUR ---
FIRST UNIT (OF 2 ORDERED) OF BLOOD INFUSED. VSS. NO C/O VOICED. RESPS EVEN. LAB NOTIFIED TO SEND SECOND UNIT. NEUTROPENIC PRECAUTIONS MAINTAINED. CALL LIGHT IN REACH.
--- NOTE | 2025-06-29 21:48 | NUR ---
SECOND UNIT OF BBLOOD (OF 2 ORDERED), INFUSING. NO NOTED S/S ADVERSE REACTIONS. DENIES PAIN OF LOWER/MID BACK. CALL LIGHT IN REACH.
--- NOTE | 2025-06-30 03:04 | NUR ---
NURSE FROM [facility] CALLED FOR UPDATE. NO BED AVAILABLE OF NOW, BUT THEY WLL CONTINUE TO CALL BACK TO KEEP US UPDATED.
[2025-06-30 03:24] VITALS: BP 138/83
--- NOTE | 2025-06-30 03:27 | NUR ---
SHIFT SUMMARY PATIENT IS A&OX4, POLITE AND COOPERATIVE WITH CARE. TWO UNITS OF BLOOD TRANSFUSED, CPN RUNNING, NG TUBE PATENT AND DRAINING CYLINDER BATCHER GREEN FLUID (START OF SHIFT WAS COFFEE GROUND IN RESERVOIR), [facility] TRANSFER LINE UPDATED (STILL NO BED YET), PATIENT HAS DENIED ANY PAIN AND DISCOMFORT. HAD HIGHER BP AFTER TRANSFUSION NOTIFIED DOCTOR, ORDERED TO START CPN. WAFFLE PAD IN PLACE. ABLE TO CALL AND MAKE NEEDS KNOWN, CALL LIGHT WITHIN REACH, BED RAILS X3 UP, BED AT LOWEST POSITION. SLEPT INTERMITTENTLY DUE TO TRANSFUSIONS
[2025-06-30 06:06] LABS: Anion Gap 7.0 mmol/L (3-11); Blood Urea Nitrogen 16.0 mg/dL (8-24); CO2, Blood 28.0 mmol/L (21-32); Calcium, Blood 8.3 mg/dL (8.5-10.1); Chloride, Blood 104.0 mmol/L (98-108); Creatinine, Blood 0.56 mg/dL (0.40-1.00); Glucose, Blood 106.0 mg/dL (70-99); Magnesium, Blood 1.8 mg/dL (1.6-2.4); Phosphorus, Blood 3.4 mg/dL (2.5-4.9); Potassium, Blood 3.6 mmol/L (3.5-5.5); Sodium, Blood 135.0 mmol/L (136-145)
[2025-06-30 07:22] VITALS: BP 142/88
[2025-06-30 09:26] LABS: Hematocrit 31.8 % (33.0-51.0); Hemoglobin 10.8 g/dL (11.5-16.0)
[2025-06-30 11:48] VITALS: BP 136/81
[2025-06-30 14:54] VITALS: BP 144/76
--- NOTE | 2025-06-30 18:09 | NUR ---
ASSUMED CARE OF PT PT IS A/O X 4 FLAT AFFECT BUT PLEASENT, PT IS COMPLAINING OF HUNGER BUT HAS NGT AT LIS DRAINING LARGE AMOUNT OF GREEN BILE. NO BLEEDING NOTED. PT CONTINUE ON NEUTROPINIC PERCAUTION. RIGHT CHEST MEDIPORT ACCESSED AND INFUSING CPN, PT LISA WELL. NO C/O PAIN NO DISTRESS.
--- NOTE | 2025-06-30 18:12 | NUR ---
NO CHANGE PT QUIETLY LAYING IN BED CALL LIGHT WITHIN REACH MAKE NEEDS KNOWN. DR ESCALERA IN TO SEE PT NO NEW ORDERES WRITTEN,
--- NOTE | 2025-06-30 18:15 | NUR ---
1700 NO CHANGE CONT MONITORING. NEW CPN HUNG AND INFUSING AT 65
[2025-06-30 19:30] VITALS: BP 121/99
[2025-06-30 23:57] VITALS: BP 126/95
--- NOTE | 2025-07-01 00:19 | NUR ---
STAFF FROM [facility] CALLED RE UPDATE IN STATUS STILL NO CURRENT BEDS AVAILABLE. THEY WILL CALL BACK AGAIN.
[2025-07-01 04:49] LABS: Hematocrit 34.3 % (33.0-51.0); Hemoglobin 11.6 g/dL (11.5-16.0); Mean Corpuscular HGB Conc 33.8 g/dL (31.5-36.5); Mean Corpuscular Volume 85 fL (80-100); NRBC ABSOLUTE 0.02 K/mm3 (0.00-0.02); NRBC Auto 0.2 /100 WBC (0.0-0.2); Platelet Count 284 K/mm3 (150-400); RDW Coefficient Variation 15.4 % (11.7-14.2); RDW Standard Deviation 46.5 fL (35.1-46.3)
[2025-07-01 04:54] VITALS: BP 120/84
[2025-07-01 05:09] LABS: Anion Gap 9.0 mmol/L (3-11); Blood Urea Nitrogen 19.0 mg/dL (8-24); CO2, Blood 26.0 mmol/L (21-32); Calcium, Blood 8.2 mg/dL (8.5-10.1); Chloride, Blood 99.0 mmol/L (98-108); Creatinine, Blood 0.5 mg/dL (0.40-1.00); Glucose, Blood 111.0 mg/dL (70-99); Potassium, Blood 4.2 mmol/L (3.5-5.5); Sodium, Blood 130.0 mmol/L (136-145)
[2025-07-01 07:14] VITALS: BP 127/79
[2025-07-01] MEDS ORDERED: Dextran/Hypromellose/Glycerin 15 DROP/ML BTL BOTHEYES PRN (08:55)
[2025-07-01 11:29] VITALS: BP 125/84
[2025-07-01] MEDS ORDERED: TPN Consult Notification XX ONE (12:00)
[2025-07-01 14:47] VITALS: BP 127/94
[2025-07-01] MEDS ORDERED: [UNRECOGNIZED DRUG - OTHER] IV SCH (17:00)
--- NOTE | 2025-07-01 19:30 | NUR ---
PT A/OX4. NO ACUTE CHANGES ON TELE. 1PA TO BEDSIDE COMMODE. NG TUBE ON INTERMITTENT LOW SUCTION DRAINING DARK BROWN CONTENTS. PT TO TRANSFER TO [facility]. NO ACUTE NEEDS AT THIS TIME.
[2025-07-01 20:05] VITALS: BP 124/90
[2025-07-01 21:18] LABS: CORONAVIRUS COVID-19 AG Negative (NEGATIVE)
--- NOTE | 2025-07-01 22:11 | NUR ---
TRANSFER NOTE PATIENT BEING TRANSFERRED TO [facility] FLOOR 10A ROOM 8. REPORT WAS CALLED TO LISSA.
[2025-07-01 22:18] VITALS: BP 124/90
--- NOTE | 2025-07-01 22:23 | NUR ---
PT TO BE TRANSFERRED TO [facility] THIS NIGHT. PERSONAL BELONGINGS INCLUDE. CELL PHONE AND FOOD MOBILE DRIVER, BOOK, PINK AND WHIE GLOVES, PURSE AND WALLET WITH [employer]. CARD KEYS FLASHLIGHT, GLASSES, BRUSH, BAG OF CLTHING AND SHOES, JACKET
--- NOTE | 2025-07-01 23:48 | NUR ---
TRANSFER NOTE PATIENT TRANSFERRED TO [facility] WITH [facility]. PATIENT AMBULATED TO [facility] WITH THE HELP OF NUCLEAR SPECTROSCOPIST. PATIENT HAD NO COMPLAINTS AT THIS TIME.
== END 2025-07-01 23:41 | disposition short-term general hospital (02) | DRG 919 ==
LOC: ER 18:55 → ERHOLD 18:56 → MEDS 18:56
PROVIDERS: Internal Medicine; Student in an Organized Health Care Education/Training Program; ADMIT Internal Medicine
PROC: 3E0336Z Introduction of Nutritional Substance into Peripheral Vein, Percutaneous Approach (ICD-10-PCS; 2025-06-25)
PROC: 3E02340 Introduction of Influenza Vaccine into Muscle, Percutaneous Approach (ICD-10-PCS; 2025-06-26)
PROC: 30233N1 Transfusion of Nonautologous Red Blood Cells into Peripheral Vein, Percutaneous Approach (ICD-10-PCS; principal; 2025-06-29)
PROC: 0D9670Z Drainage of Stomach with Drainage Device, Via Natural or Artificial Opening (ICD-10-PCS; 2025-06-29)
DX: T85.598A Other mechanical complication of other gastrointestinal prosthetic devices, implants and grafts, initial encounter (principal); E43 Unspecified severe protein-calorie malnutrition; Z68.1 Body mass index [BMI] 19.9 or less, adult; C17.0 Malignant neoplasm of duodenum; E87.1 Hypo-osmolality and hyponatremia; N17.9 Acute kidney failure, unspecified; C78.7 Secondary malignant neoplasm of liver and intrahepatic bile duct; K56.609 Unspecified intestinal obstruction, unspecified as to partial versus complete obstruction; Z66 Do not resuscitate; F17.210 Nicotine dependence, cigarettes, uncomplicated; E78.00 Pure hypercholesterolemia, unspecified; I10 Essential (primary) hypertension; D64.9 Anemia, unspecified; D70.9 Neutropenia, unspecified; E87.6 Hypokalemia; R11.2 Nausea with vomiting, unspecified; K21.9 Gastro-esophageal reflux disease without esophagitis; Z79.899 Other long term (current) drug therapy; Z91.038 Other insect allergy status; Z91.018 Allergy to other foods; Z88.0 Allergy status to penicillin; Z87.19 Personal history of other diseases of the digestive system; Z98.890 Other specified postprocedural states; Y73.8 Miscellaneous gastroenterology and urology devices associated with adverse incidents, not elsewhere classified
CPT/HCPCS: 36415; 36430; 71045; 74177; 80048; 80053; 81001; 82947; 83690; 83735; 83880; 84100; 84132; 84478; 85014; 85018; 85025; 85027; 86850; 86900; 86901; 86923; 87426-QW; 93005; 93010; 96361; 96374-59; 96375; 99285-25; G0378; J0780; J1642; J2405; J2470; J3411; J3475; J3480; J7030; J7040; J7050; J7131; P9016; Q9967